=== PATIENT | female | born 1945 | race Two or more races ===

== ENCOUNTER 2023-01-08 20:11 | Emergency (ER) | payer OTHER ==
[~2023-01-08] VITALS: Ht 162.6 cm; Wt 59.4 kg
[2023-01-08] MEDS ORDERED: PLAVIX75 MG (20:22)
[2023-01-08] MEDS ORDERED: TROPOL (20:22)
[2023-01-08] MEDS ORDERED: LEVOTHYROXINE25 MCG PO (20:22)
[2023-01-08] MEDS ORDERED: LIPITOR40 M1 PO (20:22)
[2023-01-08 21:50] LABS: HEMATOCRIT 35.7 % (36.0-45.00); HEMOGLOBIN 12.2 g/dL (12.0-15.00); MEAN CELL VOLUME 85.3 fL (80.00-100.00); MEAN CORPUSCULAR HEMOGLOBIN 29.2 pg (27.00-32.0); MEAN CORPUSCULAR HGB CONC 34.2 g/dl (32.0-36.0); PLATELET COUNT 241 K/uL (150-450); RED BLOOD COUNT 4.19 M/uL (4.00-6.00); RED CELL DISTRIBUTION WIDTH 15.9 % (11.5-14.5)
[2023-01-08 22:09] LABS: CALCIUM 9.7 mg/dL (8.5-10.1); CREATININE SERUM 0.86 mg/dL (0.55-1.02); GFR 63.98; POTASSIUM 3.91 mEq/L (3.5-5.1)
[2023-01-08 22:21] LABS: PH,URINE 7.5 (5.0-8.0); URINE APPEARANCE Clear; URINE BILIRRUBIN Negative (NEGATIVE); URINE BLOOD Negative; URINE COLOR Yellow; URINE GLUCOSE Negative (NEGATIVE); URINE LEUKOCYTE Trace; URINE NITRATE Negative; URINE PROTEIN Negative (NEGATIVE); URINE UROBILINOGEN 0.2 E.U./dl
[2023-01-08 22:25] LABS: URINE BACTERIA 458.6 uL (0.0-1933); URINE EPITHELIAL CELLS 68.3 uL (0.0-38.8); URINE RBC 77.6 uL (0.0-20.8); URINE WBC 22.7 uL (0.0-23.2)
== END 2023-01-09 02:57 | disposition home or self-care (01) ==
LOC: ER 20:11
DX: R10.32 Left lower quadrant pain (principal); K57.30 Diverticulosis of large intestine without perforation or abscess without bleeding; K40.90 Unilateral inguinal hernia, without obstruction or gangrene, not specified as recurrent; K44.9 Diaphragmatic hernia without obstruction or gangrene; N20.0 Calculus of kidney
CPT/HCPCS: 36415; 74176; 96372; 99284; J2250; J3490

== ENCOUNTER 2024-06-14 05:25 | Day surgery (SDC) | payer OTHER ==
[2024-06-08 10:09] VITALS: BP 140/82
[~2024-06-14] VITALS: Ht 162.6 cm; Wt 59.0 kg
[~2024-06-14 05:25] MED LIST: COZAAR100 MG PO; LEVOTHYROXINE25 MCG PO; LIPITOR40 M1 PO; PLAVIX75 MG; TOPROL XL25 M1 PO; TROPOL
[2024-06-14] MEDS ORDERED: ENOXAPARIN SODIUM 40 MG/0.4 ML SYRINGE SUBCUTANEO ONE (09:07)
[2024-06-14] MEDS ORDERED: METRONIDAZOLE/SODIUM CHLORIDE 500 MG/100 ML PIGGYBACK IV ONE (09:07)
[2024-06-14] MEDS ORDERED: CEFTRIAXONE SODIUM 2,000 MG VIAL ONE (09:07)
[2024-06-14] MEDS ORDERED: BUPIVACAINE HCL 0.5% 50ML VIAL ONE (09:17)
[2024-06-14] MEDS ORDERED: SUGAMMADEX SODIUM 200 MG/2 ML VIAL IV ONE (11:18)
[2024-06-14] MEDS ORDERED: NEURONTIN300 MG PO (11:30)
[2024-06-14] MEDS ORDERED: PERCOCET 5-3251 EACH PO (11:30)
[2024-06-14] MEDS ORDERED: CELEBREX200MG PO (11:31)
[2024-06-14] MEDS ORDERED: POLY119PG PO (11:31)
[2024-06-14] MEDS ORDERED: MORPHINE SULFATE 4 MG/ML VIAL IV ONE ×2 (12:24→13:10)
== END 2024-06-14 16:50 | disposition home or self-care (01) ==
LOC: CIR.AMB 05:25
PROVIDERS: ATTEND Surgery
DX: K40.20 Bilateral inguinal hernia, without obstruction or gangrene, not specified as recurrent (principal); I10 Essential (primary) hypertension; G43.909 Migraine, unspecified, not intractable, without status migrainosus; M19.90 Unspecified osteoarthritis, unspecified site
CPT/HCPCS: 49650; C1781